=== PATIENT | female | born 1990 | race Caucasian/White ===

== ENCOUNTER 2024-01-07 14:02 | Observation (INO) | payer MEDICAID, SELFPAY ==
[2023-12-26 10:59] LABS: Magnesium 2.3 mg/dL (1.6-2.6)
[2023-12-26 12:15] LABS: HIV - WCH Non-Reactive (Nonreactive); Hepatitis B Surface Antibody Non-Reactive; Hepatitis C Antibody Non-Reactive (Nonreactive)
[2023-12-27 06:10] LABS: Hepatitis A AB, Total Negative (Negative)
[2024-01-07] VITALS (14 sets, daily range): BP systolic 92–115; BP diastolic 66–82; PULSE 62–99; RESP 14–18; TEMP 35.8–37.1; O2SAT 89–99; BMI 33.7
--- NOTE | 2024-01-07 08:18 | PRE.ANES_ITS ---
ASA Classification* ASA Classification ASA Classification: 2 Assessment & Plan Anesthesia* Anesthesia Assessment Anesthesia Assessment: Discussed sedation and/or anesthesia options, risks, benefits, and alternatives with patient/parents/legal guardian/POA. Questions invited. The patient/parents/legal guardian/POA seems to understand and agrees to proceed with anesthesia plan. Reviewed the physical assessment, medical history, allergy history and patient home medications list prior to surgery/procedure/anesthetic and documented any changes. Performed airway and anesthesia risk assessments. Anesthesia Type Anesthesia Type: General Anesthesia Focused Assessment* Airway Assessment Mouth opens: >3 cm Mallampati Score: II Focused Labs Anesthesia Preop lab: CBC CHEMISTRY Magnesium 2.3 mg/dL (1.6-2.6) 12/26/23 09:46 COAG Pre-Assessment Diagnosis/Proposed Procedure Planned Operative Procedure(s): ERAS, Transforaminal Lumbar Interbody Fusion MIS L5-S1 Anesthesia History Anesthesia History - employee relations consultant: Anesthesia History - employee relations consultant Hx Hospitalization No 12/25/23 12:32 Any Problems With Anesthesia No 12/25/23 12:32 Cholinesterase deficiency No 12/25/23 12:32 You/Your Family Experience No 12/25/23 12:32 fever (hyperthermia) with Relationship Recent Exposure to Contagious Disease Does patient have nerve No 12/25/23 12:32 stimulator Patient instructed to have device shut off --Does patient have Pacemaker or ICD? When Was Last Pacemaker Check QUESTION #4 FULL TEXT: You/Your Family Experience fever (hyperthermia) with Anesthesia Last Oral Intake Last Oral intake: Last Oral Intake NPO since Meds taken in AM with sips of water? Meds patient instructed to take am of surgery PONV PONV - employee relations consultant: PONV - employee relations consultant Female Yes 12/25/23 12:32 HX of Motion Sickness No 12/25/23 12:32 HX of N/V After Surgery No 12/25/23 12:32 Non-Smoker Yes 12/25/23 12:32 Duration of Surgery greater Yes 12/25/23 12:32 than 60 minutes Number of Risk Factors 3 12/25/23 12:32 PONV Score Moderate Risk 12/25/23 12:32 Height & Weight Height & Weight: Anesthesia: Height & Weight Height 5 ft 4 in 11/08/23 11:19 Respiratory Assessment Respiratory Assessment - employee relations consultant: Respiratory Tract Infection Hx - employee relations consultant Hx Respiratory Tract Infection No 12/25/23 12:32 STOP Sleep Apnea STOP Sleep Apnea - employee relations consultant: STOP Sleep Apnea - employee relations consultant Hx Hypertension No 12/25/23 12:32 Hx Sleep Apnea No 12/25/23 12:32 CPAP BIPAP Do you snore loudly (louder No 12/25/23 12:32 than talking or can be heard Do you often feel tired/ No 12/25/23 12:32 fatigued/ sleepy during daytime? Has anyone observed you stop No 12/25/23 12:32 breathing during sleep? STOP Results Negative 12/25/23 12:32 QUESTION #5 FULL TEXT : Do you snore loudly (louder than talking or can be heard through closed doors)? 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 Specify any problems Hx of Preganancy in last 3 No 12/25/23 12:32 Months Nurse Filling Out Transfusion VCHRISTIN 12/25/23 12:32 & Questions: Date: 12/25/23 12/25/23 12:32 Time: 12:33 12/25/23 12:32 Patient unable to answer at this time (ie. confused, unrespo /Reproduction History /Reproductive History - employee relations consultant: /Reproductive Hx- employee relations consultant Hx Now No 12/25/23 12:32 Gestational Age (in weeks): EDC: Hx Hx Para Hx Section SAB No 12/25/23 12:32 Active Medications Active Medications: Current Medications Generic Name Dose Route Start Last Admin Trade Name Freq PRN Reason Stop Dose Admin Acetaminophen 1,000 mg 01/07/24 10:30 Acetaminophen 500 Mg Tablet PO 01/07/24 10:31 X1 ONE Tranexamic Acid 1,000 mg/ 110 mls @ 440 mls/hr 01/07/24 10:30 Sodium Chloride IV 01/07/24 10:44 X1 ONE Tranexamic Acid 1,000 mg/ 110 mls @ 440 mls/hr 01/07/24 10:30 Sodium Chloride IV 01/07/24 10:44 X1 ONE Cefazolin Sodium 2 gm/ N/A 20 mls @ 400 mls/hr 01/07/24 10:30 IV 01/07/24 10:32 PREOP ONE Magnesium Sulfate 1 gm/ 102 mls @ 408 mls/hr 01/07/24 10:30 Dextrose IV 01/07/24 10:44 X1 ONE Lactated Ringer's 1,000 mls @ 15 mls/hr 01/07/24 08:15 IV 01/12/24 21:34 .Q48H PATRICK Protocol Insulin Human Lispro 1 - 6 unit 01/07/24 10:30 Insulin Lispro 100 Unit/Ml Insuln.Pen SC 01/07/24 16:00 Q4H PRN PRN BG>/= 180, SEE PROTOCOL Protocol PFSH Medical History Wears glasses History of steroid therapy Arthritis Anemia Injury of back Back pain Injury of head and neck Syncope Colitis Chewing tobacco dependence History of echocardiogram History of irregular heartbeat Home Medications ?Medication ?Instructions ?Recorded ?Last Taken ?Type NK 01/01/24 Unknown History Allergy/AdvReac Type Severity Reaction Status Date / Time codeine Allergy Vomiting Verified 01/01/24 13:28 Family History Mother Multiple sclerosis Hypotension Thyroid disorder Diabetes Father Diabetes Thyroid disorder Hypertension Aunt Diabetes Thyroid disorder Uncle Diabetes Thyroid disorder Grandmother Diabetes Thyroid disorder Grandfather Diabetes Thyroid disorder Surgical History Hx of prior ablation treatment Hx of section Hx of tonsillectomy Hx of cholecystectomy Social History household members: spouse and children Smoking Status: Current every day smoker tobacco type: smokeless tobacco Smokeless tobacco user: chewing tobacco alcohol intake: never Review of Systems (Anesthesia) ROS Narrative System reviewed and no additional complaints, except as documented.
[2024-01-07] MEDS: Lactated Ringers 1,000 ML 15 ML IV ×2 (08:29→15:20)
[2024-01-07] MEDS: Magnesium 1 GM over 15 mins IV (08:30)
[2024-01-07] MEDS: Acetaminophen 500 MG Tablet 1000 MG PO ×2 (08:30→22:16)
[2024-01-07 09:43] LABS: Bedside Glucose 80 mg/dL (74-106)
--- NOTE | 2024-01-07 09:52 | PCM.HP.BLA ---
History and Physical Date of Admission: 01/07/24 MR#: [id number] Acct: [id number] Name: JOSUE CURTIS Rep #: [id number] : 1990 Provider: Dr. Arun Ware MD Age/Sex: 33/F [place] [facility] [place] Status: Signed Intake Vital Signs 11/07/2410:19 Height 5 ft 4 in Weight: 198 lb BMI 34.0 Intake Visit Reasons: lumbar spine Accompanied by: Is patient in pain?: Yes Pain scale (1-10): 8 Allergies codeine Allergy (Verified 01/01/24 13:28) Vomiting Medications ?Medication ?Instructions ?Recorded ?Confirmed ?Type NK 01/01/24 01/01/24 History PFSH Medical History Wears glasses History of steroid therapy Arthritis Anemia Injury of back Back pain Injury of head and neck Syncope Colitis Chewing tobacco dependence History of echocardiogram History of irregular heartbeat Surgical History Hx of prior ablation treatment Hx of section Hx of tonsillectomy Hx of cholecystectomy Family History Mother Multiple sclerosis Hypotension Thyroid disorder DiabetesFather Diabetes Thyroid disorder HypertensionAunt Diabetes Thyroid disorderUncle Diabetes Thyroid disorderGrandmother Diabetes Thyroid disorderGrandfather Diabetes Thyroid disorder Social History household members: spouse and children Smoking Status: Current every day smoker tobacco type: smokeless tobacco Smokeless tobacco user: chewing tobacco alcohol intake: never HPI lumbar spine Details: This documentation accurately reflects the service provided and the decisions made by me, Dr. Arun Ware MD 01/01/24 1268. Part of today?s visit was documented by [ ], acting as scribe. JOSUE CURTIS is a 33 year old F here today for Pre-op dos 01/07/2024. Patient is having Minimally invasive Transforaminal interbody fusion. Patient singed the consent and got her drinks. Patient states she had the soap at home that she bought it. 11/30/23: JOSUE CURTIS is a 33 year old F here today for 2 week follow-up after seeing Dr. Crandall. She sees him again on 12/10 for a follow-up. She states that Dr. Crandall doesn't want to do anymore injections because they aren't helping. She had an injection on 11/14 and did a bilateral SI injection which didn't give her any relief. She also states that Dr. Crandall told her she needs a fusion of both her hips and her low back but her hips aren't causing her any pain and that its the low back causing her pain. She says that the pain has predominantly been in the midline of the lower lumbar area. She has a radicular pain worse on the right side that goes down to the right lower extremity symptoms are to the ankle and toes with numbness. She is unable to stand long peers of time especially when she is doing dishes. She is unable to walk longer distances. Her symptoms are affecting her quality of life. HPI from 11/08/23: JOSUE CURTIS is a 33 year old F here today for Lumbar pain. Patient states her pain is where lower center of her spine and shoots over to the right hip. Patient states the pain that shoots to her Rt hip goes down to about her knee. Patient has numbness and tingling down the right leg. She states it feels like pins and needles. Patient has seen Dr Crandall and she has done injections with him and she states they do not help that it made it worse. Last injections was 09/18/23. Caudal injection on September 03 that exacerbated her pain. Bilateral SI injections done on 09/17 with no benefit. She goes back on Sunday. Patient has done PT and that didn't help either. Says that she has done PT five times since her back pain started with no benefit. No PT in the last year but she says that she doesn't want to see PT as she has not had any benefit with it. Her pain is both with lying down as well as with sitting for prolonged periods of time. Says her right leg from her knee down will get pins and needles and feels that it has gone asleep. Patient states ice makes it worse cause she tense up. Patient states heat use to work but with in the last year it hasn't helped. Patient states nothing helps with her pain she has tried OTC pain medications. Patient states she has tried Tramadol for a dental pain and that didn't help her pain either. Ortho Exam General General: Yes no acute distress Neurologic: Yes alert and Yes oriented x3 Spine SPINE TESTING CERVICAL THORACIC LUMBAR Musculoskeletal Strength 0=absent - 5=normal Details: Examination the back shows midline and paraspinal tenderness to lower lumbar spine and also tenderness over bilateral PSIS. Neurologic evaluation of lower extremity shows 5 x 5 power normal shows normal sensations in all dermatomes. Passive straight leg raise test is negative bilaterally. Figure 4 test is positive on the right negative on the left. Ga[place]len test positive on the left. Patient has an intoeing gait. Significant pain with both flexion and extension in the lower back. Coding Level of Care Code Off vis,est,level 4 Diagnoses Other intervertebral disc degeneration, lumbar region with discogenic back pain and lower extremity pain M51.362 Sacroiliitis M46.1 Time Spent (min) 35 Assessment and Plan Assessment and Plan (1) Other intervertebral disc degeneration, lumbar region with discogenic back pain and lower extremity pain: Status: Acute (2) Sacroiliitis: Status: Acute Plan Again reviewed prior xrays from August. Also again reviewed her MRI done in July 03 at an outside institution. These show L5-S1 disc height loss with disc degeneration with central and right paracentral contained disc herniation. Mild central stenosis noticed. AP lumbar x-ray shows bilateral SI joints with sclerosis suggesting arthritis. She has tried multiple injections with pain management and has not had any relief. She has also seen physical therapy in the past but had no relief with that either. 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 Discussed the L5-S1 TLIF lumbar fusion surgery. Discussed risks and benefits of surgery. She uses one can of nicotine dip every 2 days, recommend that she talk to her PCP to help her attempt quitting as this can decrease her heal time. All risk benefits and alternatives were discussed in detail. The risks include but are not limited to infection, bleeding, hematoma formation, injury to nerves and vessels, nerve injury, foot drop, persistent pain, persistent numbness and weakness, DVT, pulmonary embolism, hardware failure, pseudoarthrosis, adjacent segment degeneration, need for further surgery, cardiopulmonary event. Patient understands and agrees to proceed with surgery. Consent was signed. Patient is in agreement.
[2024-01-07] MEDS: Cefazolin 2 GM in Syringe IV ×2 (10:57→18:25)
[2024-01-07] MEDS: TRANEXAMIC ACID 1,000 MG in 0.9% Normal Saline (100mL Bag) 100 ML 440 MG IV ×2 (10:57→13:30)
--- NOTE | 2024-01-07 11:15 | RAD_ITS ---
PROCEDURE: Interbody fusion at the L5-S1 level. DATE OF EXAMINATION: January 07, 2024. INDICATION: Female, 33 years old. Chronic low back pain. FLUOROSCOPY TIME (if supplied): (2 minutes and 48 seconds) minutes/seconds. 76.54 mGy. 14 spot images were submitted. RAD/Lumbar Spine 2 or 3 Views IMPRESSION: Intraoperative fluoroscopic services provided for fusion at the L5-S1 level with prosthetic disc placement. Electronically Signed: Martínez Polo MD at 14:32 EST ,
[2024-01-07] MEDS: Ropivacaine 0.5% 30 ML Vial (13:33)
--- NOTE | 2024-01-07 14:17 | OP.PCM_ITS ---
Operative Report (Standard) Operative Information Surgery/Procedure Performed: L5-S1 transforaminal lumbar interbody fusion Surgeon: Arun Ware Date of Procedure: 01/07/24 Procedure Start Time: 11:30 Procedure Stop Time: 13:50 Pre-Operative Diagnosis: L5-S1 disc degeneration, retrolisthesis, stenosis, radiculopathy Post-Operative Diagnosis: Same Select all DRAINS/GRAFTS/IMPLANTS that apply: Graft Graft details: Allograft cancellous bone chips, DBX, autograft local from lamina and articular processes and Implanted device Implanted device details: DePuy Xpac TLIF cage, Viper pedicle screw system Type of Anesthesia: General Estimated Blood Loss: 40 cc Specimen collected: No Description of surgery: Preoperative diagnosis: L5-S1 disc degeneration, retrolisthesis, foraminal stenosis, radiculopathy Postoperative diagnosis: Same Name of procedure: L5-S1 transforaminal lumbar interbody fusion (TLIF), minimally invasive right side approach, percutaneous pedicle screw instrumentation. . L5-S1 posterior spinal fusion and interbody fusion ? L5-S1 posterior pedicle screw instrumentation . L5-S1 insertion of cage . Local autograft . Cancellous allograft with DBX Attending Surgeon: Dr. Arun Ware Estimated blood loss: 40 mL Anesthesia: GA Complications: None Implants: DePuy Synthes X-PAC TLIF cage, Viper prime screws Indications: Patient is a 33-year-old lady who has had a history of low back pain that radiates into right worse than left lower extremity, with difficulty walking distances. X-rays and MRI revealed L5-S1 retrolisthesis, disc degeneration with bilateral lateral recess and foraminal stenosis. Patient was explained all options of treatment which included continued nonoperative treatment measures like rest physical therapy, epidural steroidal injections. After a prolonged period of of nonoperative treatment, patient elected to undergo surgical decompression & fusion since the symptoms severely affected her quality of life. All risks and benefits associated with the procedure were explained to the patient. The risks include but are not limited to infection, bleeding, injury to nerves and vessels, persistent paresthesia, persistent pain, dural tear, need for further procedures, adjacent segment degeneration, pseudoarthrosis, hardware failure, etc. Procedure: The patient was identified in the preoperative holding suite using unique patient identifiers. Skin was marked, consent was reviewed, and all questions were answered. The patient was then brought back to the operative room. A surgical timeout was performed to make sure correct procedure was being done on the correct patient and all operative room staff were on the same page. General endotracheal anesthesia was then given to the patient. Neuromonitoring leads were applied. The patient was then turned prone onto a Todd table. The back was prepped and draped in usual fashion. IV antibiotic was given as preoperative antibiotic. A final timeout was then again done just before starting the procedure. C-arm AP view was then taken. C-arm was positioned in a way that L5 was centralized and superior endplate of L5 and was parallel to the beam. Spinous process was centered between the pedicles. Midline was marked with skin marker and lateral borders of the pedicles were also marked. Skin marker was also utilized to vika transversely across the middle of the pedicles at L5. 2 vertical incisions about 1 inch Extending below this line were taken about 1/2 inch lateral to the pedicle line. The fascia was also incised vertically approximately the same length. Finger dissection was utilized to palpate the superior articular process and facet joint of L5-S1 on the right side. Sequential tubes were docked on the Right facet joint and 70 mm length and 24 mm diameter tubular retractor was then placed and was attached to the arm attached to the OR table. Muscle tissue was removed with pituitaries and hemostasis was achieved with Bovie. Right inferior articular process of L5 and superior articular process of S1 were exposed with Bovie. Osteotome was utilized to remove a portion of the inferior articular process to expose the articular surface of S1. Some of this resected bone was used as autograft. [place] was then utilized to remove the rest of the inferior articular process and part of the lamina of L5. Superior articular process of S1 was resected with the help of a bur such that the cut was flush with the superior border of S1 pedicle. The traversing nerve root was identified and carefully retracted to expose the disc. Hemostasis was achieved with bipolar cautery. Blunt spreaders were utilized to enter the disc space under C-arm visualization. Pituitary was used to remove disc material. Curettes of various sizes and angulations were utilized to remove as much of the disc material as possible. End plates were curetted to remove all cartilage. Angled curettes were used to remove disc material from the other side underneath the central annulus. [employer] X-PAC trials were inserted into position and checked under C- arm lateral view. The disc space was then filled with cancellous bone chips mixed with DBX which were then impacted with the trials. An 10 x 25 mm lordotic tall X-PAC cage filled with bone graft was then inserted into the disc space under x-ray control. Care was taken to make sure the cage was inserted deeper to the posterior longitudinal ligament. The expandable cage was then expanded to up to approximately 13 mm anterior height with approximately 15 degrees lordosis. The cage was found to be well fixed and not easily removable. AP and lateral views showed good positioning of the cage. Depuy Viper Prime screw tower was docked onto the transverse processes at L5. This was then slowly moved medially to reach the superior articular process of L5. This was then confirmed on C-arm and then a mallet was utilized to drive the trocar and screw into the pedicle going up to the medial wall of the pedicle on AP view. This was performed both sides. C-arm lateral view confirmed both trocars to be inside vertebral body. The screws were advanced. Similar procedure was done at S1 both sides. Cannulated pedicle screws (Depuy Viper) sizes were 7 x 45 mm bilaterally at L5 and S1 levels bilaterally. The lateral view showed good positioning of the screws and cage. 40 mm precontoured titanium 5.5 mm lordotic demario on both sides was then passed through the screw extensions and reduced down to the screws with the help of Depuy Viper Prime instrumentation system. AP and lateral views of the C-arm showed good positioning of the screws and cage. Final tightening with the torque screwdriver was then completed. Tigist was utilized to decorticate the left L5-S1 facet joint and bone graft was placed over this. Hemostasis was achieved with the help of Bovie. Closure was done in layers with 0 Vicryls for the fascia, 2-0 Vicryls for the subcutaneous tissue, and Monocryl for the skin. Dressings were applied covered with Tegaderm. The patient was then turned supine onto a hospital bed. The patient was extubated and taken to PACU in stable condition. The patient tolerated the procedure well and no complications occurred. Depuy X-PAC cage & Viper Prime minimally invasive pedicle screw instrumentation system was utilized in this case. No dural tear was identified in this case. Multimodal neuro monitoring was utilized. All potentials stayed at baseline throughout the procedure. I was present for the entirety of the case and performed the surgery myself. Sql Manager Deana Mon PA-C. My physician therapeutic recreation assistant was a vital part of this case. They were important in appropriate retraction during the case, and protection of soft tissues during the procedure. Their intimate knowledge of the case and my steps aided in safe and expedient completion of the procedure as well as appropriate position of the patient during the surgery. They were also vital in assisting with closure under my direct supervision. Surgical Findings: See operative note Breakdown Man director of social services: Yes Quality Control Engineer: Deana Mon Tasks completed by first officer: Closing, Removing tissue, Implanting device, Hemostasis: Electrocautery and Retracting Complications Complications: No Procedures Musculoskeletal [id number]: Other Procedure See Report
--- NOTE | 2024-01-07 14:20 | PCM.POST.ANE ---
Anesthesia: Postop Eval I Current Vital Signs Temperature: 97 F Pulse Rate: 90 Blood Pressure: 112/71 Respiratory Rate: 16 Pulse Ox: 93 Oxygen Delivery Method: Room Air Assessment Airway patent: Yes Spontaneous unlabored respirations: Yes Mental status: Awake and Calm nausea: No Vomiting: No Anesthesia Complication: No Fluid Hydration Crystalloid volume administer (ml): 800 Total IV fluid infused: 800 Progress Note Anesthesia document: Postop Eval 1 completed: Yes
[2024-01-07] MEDS: oxyCODONE 5 MG Tablet PO (18:25)
[2024-01-07] MEDS: Methocarbamol 500 MG Tablet 1000 MG PO ×2 (18:26→22:17)
--- NOTE | 2024-01-07 20:58 | PCM.PN.HOSP ---
Reason for Visit Reason for Visit: Diagnoses Encounter for other preprocedural examination (01/07/24) Subjective Subjective 33-year-old female history of chronic low back pain and tobacco use presented to [facility] 01/07/2024 for a lumbar fusion. Hospitalist consulted for postop medical management. Patient evaluated bedside, reports that her back/hip pain and tingling in her legs is already feeling better, has a little bit of pain from incision site but otherwise has no new or acute complaints. Reports she does need a nicotine patch but she denies any other medical history and takes no medications. Her main question was if she could go home with a walker on discharge Objective Data Objective Data Vital Signs: Vital Signs Temp Pulse Resp BP Pulse Ox O2 Del Method O2 Flow Rate 97.9 F 88 17 105/76 96 Room Air 3 01/07/24 20:13 01/07/24 20:13 01/07/24 20:13 01/07/24 20:13 01/07/24 20:13 01/07/24 20:13 01/07/24 16:25 Oxygen Flow Rate (L/min) 3 Oxygen Delivery Method Room Air Weight: 89 kg Body Mass Index (BMI) 33.7 Intake & Output: Intake and Output for Last 24 Hours 01/05/24 01/06/24 01/07/24 23:59 23:59 23:59 Intake Total 1362 / 1362 Output Total 200 / 200 Balance 1162 / 1162 Lab / Micro Data Labs: Laboratory Results - last 24 hr 01/07/24 08:27: POC Glucose 80 Micro: Microbiology 12/26/23 09:46 Swab (Method) Nasal Screen MRSA/MSSA - Final Physical Exam Narrative General: Alert, oriented, no apparent distress HEENT: Atraumatic, normocephalic Eyes: extraocular movements grossly intact Neck: Supple Respiratory: normal respiratory effort Cardiovascular: Regular rhythm GI: nondistended Extremities: Moving all extremities Neuro: No overt focal neurological deficits Psych: Cooperative Assessment & Plan Assessment/Plan (1) Low back pain: PLAN: Plan # Chronic low back pain status post lumbar fusion -01/07/[address] Ware -Management per primary #Tobacco use -Advise cessation -Nicotine patch ordered #DVT ppx: Per primary Eunice Landa MD
[2024-01-07] MEDS: Senna/Docusate Sodium 1 Tablet 2 TABLET PO (22:16)
[2024-01-08] VITALS (8 sets, daily range): BP systolic 84–104; BP diastolic 53–79; PULSE 66–78; RESP 15–18; TEMP 36.2–36.6; O2SAT 92–99
[2024-01-08] MEDS: 0.9% Normal Saline (500mL Bag) 500 ML 999 ML IV (01:08)
[2024-01-08] MEDS: 0.9% Saline Lock 10 ML Syringe IV (03:02)
[2024-01-08] MEDS: Cefazolin 2 GM in Syringe IV (03:02)
[2024-01-08] MEDS: oxyCODONE 5 MG Tablet PO ×2 (03:14→08:17)
[2024-01-08] MEDS: Acetaminophen 500 MG Tablet 1000 MG PO (06:05)
--- NOTE | 2024-01-08 06:20 | RAD_ITS ---
STUDY: X-RAY - LUMBAR SPINE REASON FOR EXAM: Female, 33 years old. S/p lumbar fusion -- please do upright AP and LAT TECHNIQUE: 2 view(s) of the lumbar spine were obtained. COMPARISON: Comparison is made with prior study dated August 17, 2023. FINDINGS: The patient is status post interpedicular screw fixation and prosthetic disc placement at the L5-S1 level. RAD/Lumbar Spine 2 or 3 Views IMPRESSION: Status post interpedicular screw fixation and prosthetic disc placement at the L5-S1 level. Electronically Signed: Martínez Polo MD at 14:56 EST ,
[2024-01-08 07:15] LABS: Hematocrit 40.1 % (37-47); Mean Corp Hgb Conc 32.4 g/dL (32-36); Mean Corpuscular Hgb 30.4 pg (27.0-32.0); Mean Corpuscular Volume 93.7 fL (81-99); Mean Platelet Vol. 11.2 fl (6.2-12.0); Platelet Count 317 K/mm3 (150-450); RBC Distribution Width CV 13.3 % (11.6-14.6); RBC Distribution Width SD 45.9 fl (35.1-43.9); Red Blood Count 4.28 M/mm3 (4.2-5.4); White Blood Count 16.9 K/mm3 (4.4-11.0)
[2024-01-08] MEDS: Methocarbamol 500 MG Tablet 1000 MG PO (08:17)
[2024-01-08] MEDS: Meloxicam 15 MG Tablet PO (08:18)
[2024-01-08] MEDS: Senna/Docusate Sodium 1 Tablet 2 TABLET PO (08:18)
[2024-01-08 08:28] LABS: Anion Gap 7 (5-15); BUN 6 mg/dL (7-18); BUN/Creat Ratio 6.3 RATIO (10-20); Calcium,Total 8.5 mg/dL (8.5-10.1); Chloride 112 mmol/L (98-107); Creatinine, Serum 0.95 mg/dL (0.55-1.02); EST Glomerular Filtration Rate 72 mL/min (>60); Est Glom Filt Rate - Afr Amer 88 mL/min (>60); Estimated Creatinine Clearance 92.68 ml/min; Glucose 118 mg/dL (74-106); Potassium 4.1 mmol/L (3.5-5.1); Sodium Level 142 mmol/L (136-145)
--- NOTE | 2024-01-08 11:04 | CASEMGMT ---
Addendum entered by Loren Martinez 01/08/24 12:51: Referral sent to [employer] at this time via [facility] for a FWW. Original Note: AV ANTHONY Assessment: Face to Face with pt for initial transition planning/care coordination assessment. AV ANTHONY introduced self and role at [facility], pt voices understanding and consents to assessment. Pt is A&O x4 and answers all questions appropriately at this time. Pt sitting in chair in no distress with and 3 adult children at bedside. Pt agreeable to assessment with all visitors present. Care providers, pharmacy, and demographics verified/updated. Admitting Dx: Lumbar fusion Strata Score: NA PCP:María Rene NP Specialists:Chaz, ortho; Raz, pain mgmt; GI in [place]- pt unsure of name Preferred Pharmacy: [facility] Retail Insurance: [facility] Community Plan [employer] Prescription Benefit: yes LNOK: Mor Mijares, Living Arrangements: Pt lives with and 3 children in a two story home with a ramp to enter. Pt reports she is I in ADLs and denies concerns at home. Transportation: Pt drives self and denies concerns with transportation. Pt will transport her until she can drive again. DME:walk in shower, shower chair, raised toilet seat HHC/SNF: Denies hx of Pt states no concerns with going home at time of dc. Pt is in need of a FWW per therapy. Verbally provided pt with local in network DME companies, pt chose [employer]. Pt states no further concerns/needs. CM to follow. Advised pt to ask CM if any further question/concerns/needs arise, voices understanding. Pt Goal: Home Plan: Home with FWW [place] LEY CM
--- NOTE | 2024-01-08 12:13 | PCM.PN.ORT ---
Subjective Subjective POD 1 L5-S1 lumbar fusion. Patient is doing well with her pain well managed. She has walked with therapy and ready for discharge from their end. Reports that her pain prior to surgery has resolved. Seen with Dr. Ware. Objective Data Objective Data Vital Signs: Vital Signs Temp Pulse Resp BP Pulse Ox O2 Del Method O2 Flow Rate 97.5 F L 67 18 99/68 96 Room Air 3 01/08/24 08:07 01/08/24 08:07 01/08/24 08:07 01/08/24 08:07 01/08/24 08:14 01/08/24 08:14 01/07/24 16:25 Oxygen Flow Rate (L/min) 3 Oxygen Delivery Method Room Air Weight: 196 lb 3.382 oz Body Mass Index (BMI) 33.7 Intake & Output: Intake and Output for Last 24 Hours 01/06/24 01/07/24 01/08/24 23:59 23:59 23:59 Intake Total 1562 / 1562 993.5 / 993.5 Output Total 200 / 200 Balance 1362 / 1362 993.5 / 993.5 Lab / Micro Data 01/08/24 07:04 01/08/24 07:04 Labs: Laboratory Results - last 24 hr 01/08/24 07:04: WBC 16.9 H, RBC 4.28, Hgb 13.0, Hct 40.1, MCV 93.7, MCH 30.4, MCHC 32.4, RDW Std Deviation 45.9 H, RDW Coeff of Brigida 13.3, Plt Count 317, MPV 11.2, Sodium 142, Potassium 4.1, Chloride 112 H, Carbon Dioxide 23.0, Anion Gap 7, BUN 6 L, Creatinine 0.95, Estim Creat Clear Calc 92.68, Est GFR (MDRD) Af Amer 88, Est GFR (MDRD) Non-Af 72, BUN/Creatinine Ratio 6.3 L, Glucose 118 H, Calcium 8.5 Micro: Microbiology 12/26/23 09:46 Swab (Method) Nasal Screen MRSA/MSSA - Final Physical Exam Narrative Neurological exam of the lower extremities shows 5x5 power. Normal sensations across all dermatomes. Tegaderm and gauze intact over back incisions, do drainage noticed. Const alert, oriented x3 and no apparent distress Assessment & Plan Assessment/Plan (1) Status post lumbar spinal fusion: PLAN: Plan POD 1 L5-S1 TLIF. Reviewed xrays today which look good. Ready for discharge from therapy. Home going meds include: acetaminophen, oxycodone, Robaxin, meloxicam, and senna. Reviewed restrictions of no bending lifting or twisting. Follow up in clinic in 2 weeks.
== END 2024-01-08 13:50 | disposition home or self-care (01) | DRG 304 ==
LOC: MS3 01-08 07:18 → SDC 01-08 11:44 → MS3 01-08 12:12
PROVIDERS: Anesthesiology; Student in an Organized Health Care Education/Training Program; Admitting Provider Orthopaedic Surgery Orthopaedic Surgery of the Spine; PCP Nurse Practitioner Family; Referring Provider Orthopaedic Surgery Orthopaedic Surgery of the Spine; Visit Provider Orthopaedic Surgery Orthopaedic Surgery of the Spine
PROC: (CPT 22633; principal; 2024-01-07 09:45)
DX: M48.07 Spinal stenosis, lumbosacral region (principal); M51.16 Intervertebral disc disorders with radiculopathy, lumbar region; M46.1 Sacroiliitis, not elsewhere classified; M51.17 Intervertebral disc disorders with radiculopathy, lumbosacral region; M51.362 Other intervertebral disc degeneration, lumbar region with discogenic back pain and lower extremity pain; F17.220 Nicotine dependence, chewing tobacco, uncomplicated; G89.29 Other chronic pain
CPT/HCPCS: 22633; 22840; 22853; 20936; 20930; 00670; J2405; 36415; 72100; 76000; 80048; 82962; 83735; 85027; 86703; 86706; 86708; 86803; 86850; 86900; 86901; 87081; 94668; 96361; 96365; 96376; 97162; 97166; 99221; 99406; C1713; A4216; G0378; J3475